=== PATIENT | female | born 1990 | race Caucasian/White ===

== ENCOUNTER 2017-09-23 18:52 | Emergency (ER) | payer BC ==
[~2017-09-23] VITALS: Ht 144.8 cm; Wt 115.0 kg
[2017-09-23 19:07] VITALS: BP 132/70
== END 2017-09-23 21:32 | disposition home or self-care (01) ==
LOC: ER 19:56
DX: M54.9 Dorsalgia, unspecified (principal); Z98.890 Other specified postprocedural states
CPT/HCPCS: 99281